=== PATIENT | female | born 1960 | race Caucasian/White ===

== ENCOUNTER → 2020-12-10 12:14 | Outpatient (CLI) | payer OTHER, SELFPAY ==
[2020-12-10 13:29] LABS: COVID19 -Nasal RAPID Negative (Negative)
== END ==
PROVIDERS: Visit Provider Nurse Practitioner
DX: Z01.812 Encounter for preprocedural laboratory examination (principal); Z20.822 Contact with and (suspected) exposure to COVID-19
CPT/HCPCS: 87635

== ENCOUNTER 2020-12-12 05:52 | Day surgery (SDC) | payer OTHER, SELFPAY ==
[2020-12-05 13:49] VITALS: BMI 27.1
[2020-12-12] VITALS (13 sets, daily range): BP systolic 113–133; BP diastolic 52–81; PULSE 49–82; RESP 10–100; TEMP 35.9–36.6; O2SAT 14–100; BMI 27.1
--- NOTE | 2020-12-12 06:30 | DI.RAD.S_ITS ---
PROCEDURE: XR KNEE RT 1TO2V INDICATIONS: TKA TECHNIQUE: 2 view(s) of the knee acquired. COMPARISON: None. FINDINGS: Bones: Patient is status post knee joint arthroplasty. Hardware components are in expected positions. Visualized bony structures are intact. Soft tissues: Overlying postoperative changes are noted. IMPRESSION: Postop changes from right total knee arthroplasty with anatomic right knee alignment. Dictated by: Jignesh Cruz M.D. on 12/12/2020 at 11:22 Approved by: Jignesh Cruz M.D. on 12/12/2020 at 11:22
[2020-12-12] MEDS: ACETAMINOPHEN 325 MG TABLET 975 MG PO (06:46)
[2020-12-12] MEDS: PREGABALIN 75 MG CAPSULE PO (06:46)
[2020-12-12] MEDS: CELECOXIB 200 MG CAPSULE PO (06:46)
[2020-12-12] MEDS: LACTATED RINGERS 1,000 ML 42 ML IV (07:00)
--- NOTE | 2020-12-12 07:36 | PM.PREOP ---
Pre-operative Note COVID-19 COVID-19 status: Negative Result date/Date tested (Pos, Neg/Pending): 12/10/20 Interval Note History & Physical reviewed/Exam performed by Physician: Yes Changes to H&P: No
[2020-12-12] MEDS: TRANEXAMIC ACID 1,000 MG VIAL 2000 MG INJ ×2 (07:56→08:55)
[2020-12-12] MEDS: CEFAZOLIN 1 GM VIAL 2 GM IV (07:58)
--- NOTE | 2020-12-12 08:13 | SUR.OPER ---
Supine on padded OR bed. Pillow under head, arms secured on padded armboards <90 degree abduction. Safety belt across torso. Non-operative leg secured with tape over blanket over lower leg. Operative leg secured in DeMayo positioner.
[2020-12-12] MEDS: BUPIVACAINE LIPOSOME 266 MG/20 ML VIAL INJ (08:21)
[2020-12-12] MEDS: MORPHINE 4 MG/ML INJ IM (08:23)
[2020-12-12] MEDS: EPINEPHrine 1 MG/ML 0.3 MG INJ (08:24)
[2020-12-12] MEDS: BUPIVACAINE 0.25% (PF) VIAL 60 ML INJ (08:24)
--- NOTE | 2020-12-12 09:35 | PM.OP.1 ---
Operative Date/Time/Diagnoses Date of procedure: 12/12/20 Time of procedure: 09:36 Pre-op diagnosis: Right knee osteoarthritis Post-op diagnosis: same Procedure & Clinicians Procedure: Right total knee replacement Same procedure as scheduled: Yes Indications: The patient has had progressively worsening right knee pain with radiographic changes consistent with arthritis. Non-operative management has failed and the patient has requested total knee replacement. The risks, benefits and alternatives to surgery were discussed with the patient prior to proceeding. Risks discussed included, but were not limited to, failure to relieve pain, stiffness, infection, nerve damage, deep venous thrombosis, pulmonary embolism, stroke, coma, heart attack, permanent paralysis and , as well as the potential need for eventual revision of the prosthetic. Surgeon: Rodney Phillip Hide Dropper: Clem Baltazar Click Yes if Unassisted: No Anesthesia Type: General, Spinal and Local Operative Notes Findings: Severe lateral and moderate patellofemoral osteoarthritis with relative preservation of the medial compartment. Closure Type: primary Specimen(s): none sent Prosthetic devices, grafts, tissues, transplants, or devices: Implants used in this procedure were manufactured by the [employer] and [employer] and included the BCS II Journey total knee replacement with a size 5 right Oxinium femoral component, size 4 right non porous tibial base plate, a 9 mm cross-linked polyethylene insert and a 32 mm oval Emerald II patella. Applied: implant(s) Estimated Blood Loss (mL): 25 Blood products transfused: none Tourniquet time (min): 47 Procedure in detail: The patient was seen in the pre-operative area, where the patient identified the right knee as the operative site and this was marked with my initials. The patient received pre-operative antibiotics, and was taken to the operating room and placed on the operative table in the supine position. After satisfactory anesthesia, a multimedia services coordinator out was performed. The right leg was encircled with a tourniquet about the proximal thigh, and the leg was prepared from the toes to the tourniquet with ChloroPrep in the usual fashion and draped through sterile drapes. The leg was elevated and exsanguinated with Eschmark bandage and the tourniquet inflated to 250 mmHg pressure. The knee was approached through an approximately 16 cm incision centered over the patella and carried into the knee through a medial parapatellar arthrotomy. The anterior osteophytes and soft tissues were removed. The rotational landmarks of Doña Ana's line and the transepicondylar axis were marked on the femur with electrocautery, and intramedullary guide holes for the femur and tibia were created. The distal femoral cut was made in 6 degrees of valgus using the intramedullary guide at the primary cut setting. The proximal tibial cut was then made using the intramedullary guide, taking 9 mm of bone off the lateral side. The extension gap was checked and the rotation of the femoral component confirmed with the gap balancing system. The anterior, posterior and chamfer cuts were then made. The posterior osteophytes and soft tissues were then removed. The posterior capsule was injected with part of a mixture of 60 ml 0.25% Marcaine mixed with 20 ml Exparel and 4 mg of morphine for post-operative pain control. The remainder of this mixture was injected into the capsule and subcutaneous tissues during cement curing. The tibia was prepared with the rotation set by an extra medullary guide. Trial tibial and femoral components were then placed and the intercondylar notch cut through the femoral trial. Range of motion was 0-140 degrees, with good stability throughout the range. The patella was then cut to accommodate the patellar prosthetic. There was no need for a lateral release. The trials were then removed, and the femoral hole plugged with a bone plug. The bone was prepared with pulsatile lavage, and dried with a sponge. Cement was applied and the final prosthetics placed. Excess cement was removed during and after cement curing. After confirming there was no extruded cement posteriorly, the final tibial insert was placed. The knee was copiously irrigated and the tourniquet deflated. Hemostasis was obtained. The capsule was closed with interrupted # 2 polyester suture. The subcutaneous layer was closed with 3-0 Vicryl, and the skin with a running 3-0 V-Lock suture and Dermabond. An Aquacel Ag dressing was applied and the patient was taken to recovery having tolerated the procedure well. Complications: none Post-operative Condition: stable Disposition: PACU Plan for aftercare: The patient will be maintained on a standard total knee replacement protocol with weight bearing as tolerated. The patient will receive aspirin and sequential compression devices for DVT prophylaxis. The patient will be discharged home when safe for the home environment.
[2020-12-12] MEDS: ONDANSETRON 4 MG/2 ML INJ IV (09:39)
[2020-12-12] MEDS: OXYCODONE IR 5 MG TABLET PO ×2 (10:54→14:51)
[2020-12-12] MEDS: LACTATED RINGERS 1,000 ML 100 ML IV (10:55)
--- NOTE | 2020-12-12 11:38 | PC.NURSE ---
Pt received from [facility] room 202, oriented to room and call light (bed alarm set up). Pt alert and oriented. Dressing to right knee CDI.
[2020-12-12] MEDS: hydrOXYzine pamoate 25 MG CAPSULE PO (13:43)
--- NOTE | 2020-12-12 14:36 | P.DS_ITS ---
History of Present Illness History of Present Illness Date Patient Seen: 12/12/20 Time Patient Seen: 14:36 Chief complaint: Right knee pain Narrative: Pain is mild. Denies fever or chills. No nausea/ vomiting. Discharge Providers Provider Discharge Date: 12/12/20 Primary care physician: Doctor Dany MD Consults: 12/12/20 10:32 Consult to Discharge Planning Routine Comment: Consult to Physical Therapy Evaluate & Treat Comment: Physician Instructions: postop TKA protocol Discharge provider: Clem Baltazar PA-C Summary Hospital Course Discharge Diagnosis: Right knee OA Hospital Course: Right total knee replacement Same procedure as scheduled: Yes Indications: The patient has had progressively worsening right knee pain with radiographic changes consistent with arthritis. Non-operative management has failed and the patient has requested total knee replacement. The risks, benefits and alternatives to surgery were discussed with the patient prior to proceeding. Risks discussed included, but were not limited to, failure to relieve pain, stiffness, infection, nerve damage, deep venous thrombosis, pulmonary embolism, stroke, coma, heart attack, permanent paralysis and , as well as the potential need for eventual revision of the prosthetic. Surgeon: Rodney Phillip Christian Education Director: Clem Baltazar Click Yes if Unassisted: No Anesthesia Type: General, Spinal and Local Operative Notes Findings: Severe lateral and moderate patellofemoral osteoarthritis with relative preservation of the medial compartment. Closure Type: primary Specimen(s): none sent Prosthetic devices, grafts, tissues, transplants, or devices: Implants used in this procedure were manufactured by the [employer] and [email or web address] and included the BCS II Journey total knee replacement with a size 5 right Oxinium femoral component, size 4 right non porous tibial base plate, a 9 mm cross- linked polyethylene insert and a 32 mm oval Emerald II patella. Applied: implant(s) Estimated Blood Loss (mL): 25 Blood products transfused: none Tourniquet time (min): 47 Patient admitted to the hospital for right total knee arthroplasty. Patient consented to the same. Patient underwent right total knee arthroplasty this morning. She is back in her room recovering well as in stable condition. She has walked in the mon with physical therapy. Patient is stable for discharge home. Discharge home today in stable condition. Exam Vital Signs (past 8 hours): - 12/12/20 06:56 12/12/20 09:26 12/12/20 09:31 Temperature 97.1 F L 97.7 F Pulse Rate 49 L 82 68 Respiratory Rate 13 12 15 Blood Pressure 116/72 117/69 120/52 L Pulse Oximetry 99 100 98 12/12/20 09:36 12/12/20 09:41 12/12/20 09:46 Temperature 97.4 F L Pulse Rate 70 61 65 Respiratory Rate 16 18 100 H Blood Pressure 116/57 L 121/71 113/69 Pulse Oximetry 100 100 14 L 12/12/20 09:51 12/12/20 09:56 12/12/20 10:10 Temperature 97.4 F L Pulse Rate 66 62 59 L Respiratory Rate 14 10 L 14 Blood Pressure 116/71 115/69 116/62 Pulse Oximetry 100 100 100 12/12/20 10:20 12/12/20 10:50 12/12/20 12:08 Temperature 96.9 F L 96.7 F L 96.8 F L Pulse Rate 55 L 58 L 63 Respiratory Rate 18 18 18 Blood Pressure 116/69 128/72 133/77 Pulse Oximetry 100 100 100 Oxygen Delivery Method Room Air Oxygen Flow Rate 0 Narrative Exam Narrative: Pleasant female walk in the mon with physical therapy. Dressing is Clean, dry, intact.. Neurovascular status is intact bilateral lower extremities. [facility] Medical History Anxiety Asthma Depression Fibromyalgia GERD (gastroesophageal reflux disease) History of IBS Kidney stones Osteoarthritis Surgical History History of arthroplasty of left knee History of arthroscopy of left shoulder History of bilateral tubal ligation History of bunionectomy of both great toes History of nasal surgery History of Joshua fundoplication Hx of hernia repair Hx of tonsillectomy Social History household members: significant other Smoking Status: Never smoker alcohol intake: current Discharge Assessment & Plan Assessment and Plan Assessment: Patient progressing as expected status post right total knee replacement Plan of Treatment: Weight-bearing as tolerated Discharge home today after physical therapy of safe for home environment. Discharge Plan Discharge Plan Patient Disposition: Home Discharge orders & Medications Discharge Orders: Discharge (Order); Ordered 12/12/20 Ordered By: Clem Baltazar Prescriptions: New acetaminophen 325 mg Tablet 650 mg PO TID Qty: 60 RF: 0 polyethylene glycol 3350 17 gram Powder In Packet 17 gm PO DAILY PRN (Reason: Constipation) Qty: 20 RF: 0 aspirin 81 mg Tablet,Delayed Release (Dr/Ec) 81 mg PO BID Qty: 60 RF: 0 ibuprofen 400 mg Tablet 400 mg PO Q4HR Qty: 60 RF: 0 oxycodone 5 mg Tablet 5 mg PO Q3HR PRN (Reason: Pain, Moderate (4-6)) Qty: 60 RF: 0 hydroxyzine pamoate 25 mg Capsule 25 mg PO Q6HR PRN (Reason: Nausea) Qty: 20 RF: 0 Continued fluoxetine 40 mg Capsule 80 mg PO BEDTIME RF: 0 clonazepam 0.5 mg Tablet 0.5 mg PO DAILY PRN (Reason: Anxiety) RF: 0 ondansetron 8 mg Tablet,Disintegrating 8 mg PO DAILY PRN (Reason: Nausea, IBS) RF: 0 clonidine HCl 0.2 mg Tablet 0.6 mg PO BEDTIME RF: 0 albuterol sulfate 90 mcg/actuation Hfa Aerosol Inhaler 2 puff INHALATION Q4-6H PRN (Reason: Shortness Of Breath) RF: 0 Discontinued hydrocodone-acetaminophen 7.5-325 mg Tablet 1 tab PO DAILY PRN (Reason: Pain) RF: 0 Follow up/Referrals: Doctor Saenz MD [Primary Care Provider] - Rodney Phillip MD [Physician] - (2 weeks) Diet/Activity/Treatments Diet: Diet as Tolerated Activity: Weight-bearing as tolerated Cold/Heat Therapy: Apply ice to knee as needed Skin/Wound/Dressing Care Report to your healthcare provider any signs of infection, such as:: chills, fever, increased pain, unusual drainage and unusual redness Dressing: Keep dressing clean and dry, may remove Enmanuel wrap after 2-3 days, leave dressing in place until follow-up Visit Report/Discharge Packet Instructions: DI for Knee Replacement Stand Alone Forms: Surgery Discharge Discharge Data Primary Care Provider: Doctor aDny Attending Provider: Rodney Phillip
--- NOTE | 2020-12-12 14:41 | PT.IIE ---
Current Diagnoses Unilateral primary osteoarthritis, right knee (12/12/20) Surgery Performed Operation Date: 12/12/20 07:45 Actual Procedures p Total Knee Arthroplasty(Right) - Rodney Phillip MD Medical History (Last Reviewed 12/12/20 @ 14:38 by Clem Baltazar PA-C) Anxiety Asthma Depression Fibromyalgia GERD (gastroesophageal reflux disease) History of IBS Kidney stones Osteoarthritis Physical Therapy Inpatient Evaluation/Re-Eval M1 PT/OT-IP Prior Functional Status Start: 12/12/20 13:30 Freq: NEEDED Status: Active Protocol: Document 12/12/20 14:41 AW (Rec: 12/12/20 15:36 AW [id number]) Medical Review Prior Functional Status Medical History Reviewed Yes Communication WNL. Pt is an effective verbal communicator. Mobility and Gait Independent without AD. Pt states she has been using a knee brace/sleeve for support at work due to increasing right knee pain. Activities of Daily Living and IADL's Independent. Prior Functional Level (Other details) Pt had L TKA in 2014 with good rehab outcomes. Social History Household Members significant other Living Arrangements House Number of Floors (Floors) Two Floors Number of Stairs To Enter/Railing? Pt climbs two steps without rail to enter her house. She can contact the house on the left side as she ascends. 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 She lives with her partner, Felipe, who will be available and able to assist as needed at discharge. Pt notes she has plans to sleep in a recliner the first few nights. M2 PT-IP Current Condition Start: 12/12/20 13:30 Freq: NEEDED Status: Active Protocol: Document 12/12/20 14:41 AW (Rec: 12/12/20 15:36 AW [id number]) Physical Therapy Current Condition Current Condition Evaluation Date 12/12/20 Treatment Diagnosis R TKA; difficulty in walking Onset Date 12/12/20 Weight Bearing Status Weight Bearing Status Weight Bear as Tolerated M3 PT-IP Subjective Start: 12/12/20 13:30 Freq: NEEDED Status: Active Protocol: Document 12/12/20 14:41 AW (Rec: 12/12/20 15:36 AW [id number]) Subjective Physical Therapy Visit Type Type Initial Evaluation Visit Start Time 14:14 Visit Stop Time 14:41 Total Visit Minutes 27 Number of INTENSIVE CARE ANAESTHETIST Visits 0 Physical Therapy Visit Comments Patient Comments Pt would like to use the commode. Patient Goals Pt hopes to discharge today. Therapy Pain Assessment Pain When Pain Assessed During Mobility Pain Present Pain Present Pain Reported Location rigth knee Intensity 7 Scale Used Numeric (0 - 10) Description Acute,Sharp Pain Management Techniques Re-positioning,Timing of Activity with Medications M4 PT-IP Mobility and Gait Start: 12/12/20 13:30 Freq: NEEDED Status: Active Protocol: Document 12/12/20 14:41 AW (Rec: 12/12/20 15:36 AW [id number]) PT-Bed Mobility Assessment Supine to Sit Supine to Sit Standby Assistance Scooting Scooting to Edge of Bed Standby Assistance PT-Transfer Assessment Sit to and From Stand Sit to and from Stand Standby Assistance,Contact Guard Assistance,Use of Upper Extremities Equipment Transfer Assistive Device Gait Belt,Front Wheeled Walker Orthotic/Prosthetic Devices or Brace: No Transfers Transfer Destination Chair,Bedside Commode Transfer Technique Stand Step Pivot Transfer Ability Level of Assist Standby Assistance Comments Mobility Comments Pt was lying in bed as PT arrived. BP 145/92 HR 68. She completed supine to sit from flat bed SBA and stood CGA and cues for sequencing. She used FWW to step pivot transfer to BSC. She voided and then stood SBA. She ambulated in the halls a total of 75 feet with FWW SBA. Gait was antalgic but notable for good RLE weightbearing and stance time. She requested to do stairs because she hoped to discharge today. Pt was able to climb platform step x 2 contacting wall on left side ascending SBA to CGA. She then used FWW to ambulate 25 feet to the chair, transferring SBA . She was left with BLE elevated, ice pack applied, call light and tray table in reach. Gait Assessment Gait Gait Assistance Required: Standby Assistance Distance (Feet) 75 Able to Maintain Weight Bearing Status Yes During Gait Assistive Devices Assistive Device Gait Belt,Front Wheeled Walker Orthotic/Prosthetic Devices or Brace: No Gait Deviations General Gait Pattern Antalgic,Decreased Stride Length,Step-to Gait Factors Limiting Gait Function Factors Limiting Gait Function Decreased Strength,Limited Range of Motion,Pain Comments Gait Comments See mobility comments for details. Stair Climbing Assessment Evaluation Level of Assist On Stairs Standby Assistance,Contact Guard Assistance Technique/Endurance Stair Climbing Direction Ascend and Descend Stair Climbing Technique Step to Step Number of Steps Climbed 1 Query Text: Stair Climbing Set # Repetitions (reps) 2 Comments Stair Climbing Comments See mobility comments for details. PT-Balance Assessment Sitting Balance and Reactions Static Sitting Balance Ability Normal Dynamic Sitting Balance Ability Normal Standing Balance and Reactions Static Standing Balance Ability Good Dynamic Standing Balance Ability Good Device Used FWW M5 PT-IP Objective Assessments Start: 12/12/20 13:30 Freq: NEEDED Status: Active Protocol: Document 12/12/20 14:41 AW (Rec: 12/12/20 15:36 AW [id number]) Orientation Orientation/Cognition Level of Alertness Alert Orientation Name,Day of Week,Place, Situation Language Function Ability No Deficits Noted Safety Awareness Understands Safety Issues Memory Description No Deficits Noted Gross Range of Motion Upper Extremity ROM Assessment Within Functional Limits Lower Extremity ROM Assessment Right Impaired Strength Upper Extremity Strength Assessment Within Functional Limits Lower Extremity Strength Assessment Right Impaired Hip 4/5 Ankle 4+/5 Comments Strength Comments LLE grossly 5/5 Sensation Assessment Sensation Gross Sensation WNL Muscle Tone Muscle Tone WNL Yes M6 PT-IP Treatment Start: 12/12/20 13:30 Freq: NEEDED Status: Active Protocol: Document 12/12/20 14:41 AW (Rec: 12/12/20 15:36 AW [id number]) Physical Therapy Treatment Exercises Exercises Ankle Pumps,Quad Sets,Heel Slides,Seated Knee Flexion/ Extension Education Education Provided Weight Bearing Status,Post-Op Packet,Safety Other Treatments Other Treatment Performed Educated pt on PT plan of care , weightbearing status, need for FWW until evaluated by outpatient PT. M7 PT-IP Assessment and Plan Start: 12/12/20 13:30 Freq: NEEDED Status: Active Protocol: Document 12/12/20 14:41 AW (Rec: 12/12/20 15:36 AW [id number]) PT Summary Assessment and Plan Potential Rehabilitation Potential Excellent Summary Impairments Pain,ROM,Strength,Balance,Gait Assessment Summary Galen is an active 60 yo woman seen for PT evaluation on POD0 following R TKA. She is independent in all regards at baseline. On evaluation, she required SBA to [facility] (for stairs only) with all mobilities using FWW. Her primary limitation was pain. PT anticipates she will be safe to discharge home with assist and outpatient PT once medically cleared. Goals Bed Mobility Goal Independent Transfer Goal Independent,Front Wheeled Walker Gait Goal Independent,Front Wheel Walker Gait Distance 200 Other Goals - up/down 2 steps no rail SBA Days to Meet Goals 2 Frequency of Treatment Frequency Of Treatment Twice a Day Treatment Plan Physical Therapy Treatment Plan Bed Mobility Training,Transfer Training,Gait Training, Therapeutic Exercise,Balance Retraining,Post Op Education, Discharge Planning,Hot or Cold Pack Other Recommendations and Next Treatment progress gait with FWW; review Focus stair climbing technique Precautions Other Precautions WBAT RLE Recommendations To Nursing Amount of Assist Needed Standby Assistance Discharge Recommendations PT Discharge Recommendations Home with Assistance, Outpatient PT Transportation Needs at Discharge Private Vehicle
[2020-12-12] MEDS: ACETAMINOPHEN 325 MG TABLET 650 MG PO (14:50)
--- NOTE | 2020-12-12 17:13 | PC.NURSE ---
pt AO and receptive to care. pt changed into personal clothing, personal items packed, PIV removed and tolerated well. DC instructions provided to pt and . No questions remained. Transferred to personal vehicle via wheelchair. No questions remained.
== END 2020-12-12 16:35 | disposition home or self-care (01) ==
LOC: OR 06:00 → AC 06:07
PROVIDERS: Visit Provider Orthopaedic Surgery
PROC: 0SRC0JZ Replacement of Right Knee Joint with Synthetic Substitute, Open Approach (ICD-10-PCS; CPT 27447; principal; 2020-12-12 07:45)
DX: M17.11 Unilateral primary osteoarthritis, right knee (principal); M79.7 Fibromyalgia; F32.9 Major depressive disorder, single episode, unspecified; J45.909 Unspecified asthma, uncomplicated
CPT/HCPCS: 27447; 73560; 97116; 97161; C1776; C9290; J0171; J0690; J1100; J2250; J2270; J2405; J2704; J3010